=== PATIENT | female | born 1965 | race Caucasian/White ===

== ENCOUNTER → 2020-03-13 14:40 | Outpatient (BNVA) | payer BC, SELFPAY | PROVIDERS: PCP Internal Medicine Sports Medicine; Referring Provider Internal Medicine Sports Medicine; Visit Provider Orthopaedic Surgery | DX: Z76.89 Persons encountering health services in other specified circumstances (principal) ==

== ENCOUNTER → 2020-04-27 13:57 | Outpatient (BNVA) | payer BC, SELFPAY | PROVIDERS: PCP Internal Medicine Sports Medicine; Referring Provider Internal Medicine Sports Medicine; Visit Provider Surgery Vascular Surgery | DX: Z76.89 Persons encountering health services in other specified circumstances (principal) ==

== ENCOUNTER 2020-05-03 13:02 | Outpatient (REF) | payer BC, SELFPAY ==
--- NOTE | 2020-05-03 13:04 | US_ITS ---
EXAMINATION: BILATERAL LOWER EXTREMITY VENOUS ULTRASOUND (Reflux Exam) CLINICAL INDICATION: Lower extremity varicose veins and leg pain. COMPARISON: None. TECHNIQUE: Color flow triplex imaging and compression Doppler was performed to evaluate both the deep and the superficial systems bilaterally. To evaluate the superficial system, the examination was performed in the upright position. Color-flow Doppler ultrasound and compression ultrasound were utilized. In addition, maneuvers were utilized to demonstrate reflux. FINDINGS: 1. DEEP VENOUS ULTRASOUND OF THE RIGHT LOWER EXTREMITY: Common Femoral Vein: Compressible, normal respiratory variation and augmented flow. Femoral vein: Compressible, normal color flow and augmentation. Popliteal Vein: Compressible, normal augmentation. Deep Reflux: There is no evidence of reflux in the deep system in either the common femoral vein or the popliteal vein. There is no evidence of a Landin's cyst. 2. SUPERFICIAL ULTRASOUND WITH DOPPLER OF RIGHT LOWER EXTREMITY GREAT SAPHENOUS VEIN: Saphenofemoral junction: 0.3 cm; No evidence of reflux. Proximal thigh: 0.3 cm; No evidence of reflux. Mid thigh: 0.3 cm; No evidence of reflux. Above knee: 0.3 cm; No evidence of reflux. At knee: 0.3 cm; 0.3 seconds of reflux. Below knee: 0.3 cm; No evidence of reflux. Mid calf: 0.2 cm; greater than 2.5 seconds of reflux. Ankle: O.3 cm; No evidence of reflux. DUPLICATED GREAT SAPHENOUS VEIN: None. SMALL SAPHENOUS VEIN: Saphenopopliteal junction: 0.6 cm; greater than 1.7 seconds of reflux. Mid calf: 0.4 cm; greater than 3.0 seconds of reflux. Distal calf: 0.2 cm; No evidence of reflux. VEIN OF GIACOMINI: None Imaged. PERFORATORS: Mid thigh, 0.2 cm, no reflux. Proximal calf, 0.2 cm, greater than 2.1 seconds of reflux. VARICOSITIES: Midcalf arising off the small saphenous vein, 0.4 cm, greater than 2.8 seconds of reflux. Proximal calf arising off the small saphenous vein, 0.4 cm, greater than 3.0 seconds of reflux. Distal thigh, 0.3 cm, greater than 2.3 seconds of reflux. Proximal calf, 0.4 cm, greater than 2.8 seconds of reflux. 3. DEEP VENOUS ULTRASOUND OF THE LEFT LOWER EXTREMITY: Common Femoral Vein: Compressible, normal respiratory variation and augmented flow. Femoral vein: Compressible, normal color flow and augmentation. Popliteal Vein: Compressible, normal augmentation. Deep Reflux: There is no evidence of reflux in the deep system in either the common femoral vein or the popliteal vein. There is no evidence of a Landin's cyst. 4. SUPERFICIAL ULTRASOUND WITH DOPPLER OF LEFT LOWER EXTREMITY GREAT SAPHENOUS VEIN: Saphenofemoral junction: 0.5 cm; No evidence of reflux. Proximal thigh: 0.2 cm; No evidence of reflux. Mid thigh: 0.3 cm; No evidence of reflux. Above knee: 0.4 cm; No evidence of reflux. At knee: 0.3 cm; greater than 1.1 seconds of reflux. Below knee: 0.3 cm; better than 7.7 seconds of reflux. Mid calf: 0.2 cm; No evidence of reflux. Ankle: 0.2 cm; No evidence of reflux. DUPLICATED GREAT SAPHENOUS VEIN: Lateral, 0.3 cm at the level of the saphenofemoral junction and mid thigh without evidence of reflux. SMALL SAPHENOUS VEIN: Saphenopopliteal junction: 0.1 cm; No evidence of reflux. Mid calf: 0.2 cm; No evidence of reflux. Distal calf: 0.3 cm; No evidence of reflux. VEIN OF GIACOMINI: None Imaged. PERFORATORS: Proximal calf, 0.2 cm, no reflux. Proximal calf, 0.3 cm, no reflux. VARICOSITIES: Few varicosities are seen throughout the left lower extremity, all measuring less than 3 mm in diameter. US/US venous duplex LE BI IMPRESSION: 1. Bilateral great saphenous venous insufficiency as above. 2. Right small saphenous venous insufficiency. No evidence of left small saphenous venous insufficiency. 3. 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 4. Multiple small left lower extremity varicosities, all measuring less than 3 mm. 5. No evidence of DVT.
== END 2020-05-03 13:03 | disposition home or self-care (01) ==
LOC: HO.US 13:02
PROVIDERS: Visit Provider Surgery Vascular Surgery
DX: I83.11 Varicose veins of right lower extremity with inflammation (principal)
CPT/HCPCS: 93970

== ENCOUNTER → 2020-05-09 15:17 | Outpatient (BNVA) | payer BC, SELFPAY | PROVIDERS: PCP Internal Medicine Sports Medicine; Visit Provider Surgery Vascular Surgery | DX: Z76.89 Persons encountering health services in other specified circumstances (principal) ==

== ENCOUNTER → 2020-05-12 11:22 | Outpatient (BNVA) | payer BC, SELFPAY | PROVIDERS: PCP Internal Medicine Sports Medicine; Visit Provider Surgery Vascular Surgery | DX: I83.11 Varicose veins of right lower extremity with inflammation (principal) | CPT/HCPCS: 37765 ==

== ENCOUNTER → 2020-05-30 15:29 | Outpatient (BNVA) | payer BC, SELFPAY | PROVIDERS: PCP Internal Medicine Sports Medicine; Visit Provider Surgery Vascular Surgery | DX: Z76.89 Persons encountering health services in other specified circumstances (principal) ==

== ENCOUNTER → 2020-11-17 13:40 | Outpatient (BNVA) | payer BC, SELFPAY | PROVIDERS: Visit Provider Physician Assistant | DX: S83.207A Unspecified tear of unspecified meniscus, current injury, left knee, initial encounter (principal) | CPT/HCPCS: 20610; J1040 ==

== ENCOUNTER 2020-11-21 07:11 | Outpatient (REF) | payer BC, SELFPAY ==
--- NOTE | ~2020-11-21 | MR_ITS ---
EXAMINATION: MR KNEE WITHOUT CONTRAST, LEFT CLINICAL INFORMATION: Left knee pain. COMPARISON: Radiographs 05/14/2019. TECHNIQUE: MRI of the knee without contrast was performed using routine sequences on a high-field scanner. FINDINGS: MENISCI: Medial Meniscus: Complex, near-complete tear at the root of the posterior horn with extrusion of the meniscal body. Lateral Meniscus: Degeneration and possible ill-defined partial tearing at the root of the anterior horn. LIGAMENTS: Cruciate: Degeneration and chronic partial tearing of the ACL. The posterior cruciate ligament appears intact. Collateral: Intact. EXTENSOR MECHANISM: Intact. ARTICULAR CARTILAGE/BONE: Patellofemoral Compartment: Focal cartilage irregularity of the medial trochlea inferiorly. Medial Compartment: Mild marrow edema and degenerative cyst formation of the tibia posteriorly, subjacent to the meniscal root. Lateral Compartment: Near full-thickness cartilage loss along the lateral tibial spine. JOINT FLUID AND BURSAE: No significant joint effusion. There is a ganglion adjacent to the proximal ACL. MR/MR knee LT wo con IMPRESSION: Complex near-complete tear at the root of the posterior horn with extrusion of the meniscal body. Mucoid degeneration and chronic partial tearing of the ACL with a proximal ganglion. Degeneration/ill-defined partial tearing at the root of the anterior horn of the lateral meniscus. Mild tricompartmental osteoarthritis with no significant joint effusion.
== END 2020-11-21 07:12 | disposition home or self-care (01) ==
LOC: HO.MRI 07:11
PROVIDERS: Visit Provider Physician Assistant
DX: S83.207A Unspecified tear of unspecified meniscus, current injury, left knee, initial encounter (principal)
CPT/HCPCS: 73721